=== PATIENT | male | born 1980 | race Hispanic/Latino ===

== ENCOUNTER 2020-04-16 10:07 | Emergency (ER) | payer SELFPAY ==
[~2020-04-16] VITALS: Ht 170.2 cm; Wt 70.0 kg
[2020-04-16] MEDS ORDERED: CIPROFLOXACN500 MG PO (10:44)
[2020-04-16 10:56] VITALS: BP 128/88
== END 2020-04-16 11:00 | disposition home or self-care (01) | DRG 605 ==
LOC: ED 10:07
DX: S91.331A Puncture wound without foreign body, right foot, initial encounter (principal); L08.9 Local infection of the skin and subcutaneous tissue, unspecified; W45.0XXA Nail entering through skin, initial encounter